=== PATIENT | female | born 1935 | race Caucasian/White ===

== ENCOUNTER 2017-01-10 19:18 | Emergency (ER) | payer MEDICARE, BC ==
[2017-01-10 19:51] VITALS: BP 176/78
--- NOTE | 2017-01-10 19:55 | EDM.PDOC ---
ED HPI GENERAL MEDICAL PROBLEM - General Chief Complaint: General Stated Complaint: MEDICAL VIA [facility] Time Seen by Provider: 01/10/17 19:20 Source of Information: Reports: EMS History Limitations: Reports: Altered Mental Status - History of Present Illness INITIAL COMMENTS - FREE TEXT/NARRATIVE: Telma is a 81 year old female with dementia who was sent via EMS from memory care unit for "combative behavior" today. Patient was reported to be throwing chairs and breaking glass which is very uncharacteristic for her. Patient has no other complaints or reported concerns. Onset: Today - Related Data Allergies Allergy/AdvReac Type Severity Reaction Status Date / Time No Known Allergies Allergy Verified 01/10/17 19:47 Home Meds: Home Meds Aspirin 81 mg PO DAILY 01/10/17 [History] Citalopram Hydrobromide [Celexa] 10 mg PO DAILY 01/10/17 [History] Memantine HCl/Donepezil HCl [Namzaric 28 mg-10 mg Capsule] 1 each PO DAILY 01/10 [History] Past Medical History - Past Health History Medical/Surgical History: Denies Medical/Surgical History Other OB/BYN History: pt. hardik sherman Psychiatric History: Reports: Alzheimers Disease, Dementia Other Hematologic History: pt. hardik sherman Other Immunologic History: pt. hardik sherman - Past Surgical History Other HEENT Surgeries/Procedures: pt. hardik sherman Other Cardiovascular Surgeries/Procedures: pt. hardik sherman Other Respiratory Surgeries/Procedures: pt. hardik sherman Other GI Surgeries/Procedures: pt. hardik sherman Other Female Surgeries/Procedures: pt. hardik sherman Other Endocrine Surgeries/Procedures: pt. hardik sherman Other Neurological Surgeries/Procedures: pt. hardik sherman Other Musculoskeletal Surgeries/Procedures:: pt. hardik sherman Other Oncologic Surgeries/Procedures: pt. hardik sherman Social & Family History - Tobacco Use Smoking Status *Q: Never Smoker - Recreational Drug Use Recreational Drug Use: No ED ROS GENERAL - Review of Systems Review Of Systems: Unable To Obtain ED EXAM, GENERAL - Physical Exam Exam: See Below Exam Limited By: Altered Mental Status General Appearance: Alert, WD/WN, No Apparent Distress Throat/Mouth: Normal Inspection, Normal Oropharynx Head: Atraumatic Neck: Normal Inspection Respiratory/Chest: No Respiratory Distress Cardiovascular: Regular Rate, Rhythm GI/Abdominal: Normal Bowel Sounds, Soft, Non-Tender Extremities: Normal Inspection Neurological: Alert, Normal Reflexes Psychiatric: Normal Affect Skin Exam: Warm, Dry, Intact Lymphatic: No Adenopathy Course - Vital Signs Last Recorded V/S: Last Vital Signs Temp 36.6 C 01/10/17 19:39 Pulse 62 01/10/17 19:39 Resp 18 01/10/17 19:39 BP 176/78 H 01/10/17 19:39 Pulse Ox 95 01/10/17 19:39 Telma is a 81-year-old female sent here from [facility] for evaluation of increased agitation today. Patient has a history of dementia, she was reportedly throwing around chairs and breaking glass today. Concerns for UTI , patient did give us a urine sample on arrival here which is negative for infection. On arrival she is mildly hypertensive, she is not febrile. Patient does have a doll which she refers to as her puppy and has been talking to her puppy here. She has not demonstrated any agitation. Blood work was obtained including a CBC and a CMP, CBC is unremarkable. CMP returns with a creatinine of 1.6 and a BUN of 19. I feel at this time, patient likely may have worsening dementia, her NIH is 0. I feel she can be discharged back to her care facility. Patient has not been violent here. She has been looking for her things, wondering where she is, sometimes slightly agitated but not violent in any capacity. [facility] facility was contacted, they are willing to take patient back but are requesting medication for patient for agitation. Patient was given 5 mg of IM Haldol here for her agitation. Will send her back with Rx for ativan, 0.5 mg tablets q8h PRN agitation, #6 tablets. to see if these are effective, [facility] facility will have to re-address patient's behavior for ongoing medication needs. - Orders/Labs/Meds Orders: Active Orders 24 hr Category Date Time Status Peripheral IV Care [RC] . DIRECTED Care 01/10/17 20:23 Active Sodium Chloride 0.9% [Normal Saline] 1,000 ml Med 01/10/17 20:30 Active IV ASDIRECTED Sodium Chloride 0.9% [Saline Flush] Med 01/10/17 20:23 Active 10 ml FLUSH ASDIRECTED PRN Peripheral IV Insertion Adult [OM.PC] Routine Oth 01/10/17 20:23 Ordered Medication Orders Sodium Chloride (Normal Saline) 1,000 mls @ 999 mls/hr IV ASDIRECTED STEPHEN Sodium Chloride (Saline Flush) 10 ml FLUSH ASDIRECTED PRN PRN Reason: Keep Vein Open Labs: Laboratory Tests 01/10/17 01/10/17 01/10/17 Range/Units 19:33 19:40 19:40 WBC 6.5 (4.5-11.0) K/uL RBC 4.66 (3.30-5.50) M/uL Hgb 13.6 (12.0-15.0) g/dL Hct 40.2 (36.0-48.0) % MCV 86 (80-98) fL MCH 29 (27-31) pg MCHC 34 (32-36) % Plt Count 181 (150-400) K/uL Neut % (Auto) 54 (36-66) % Lymph % (Auto) 32 (24-44) % [place] % (Auto) 10 H (2-6) % Eos % (Auto) 3 (2-4) % Baso % (Auto) 1 (0-1) % Sodium 140 (140-148) mmol/L Potassium 4.1 (3.6-5.2) mmol/L Chloride 105 (100-108) mmol/L Carbon Dioxide 30 (21-32) mmol/L Anion Gap 4.8 L (5.0-14.0) mmol/L BUN 19 H (7-18) mg/dL Creatinine 1.6 H (0.6-1.0) mg/dL Est Cr Clr Drug Dosing 23.58 mL/min Estimated GFR (MDRD) 31 L (>60) Glucose 99 (74-106) mg/dL Calcium 8.3 L (8.5-10.1) mg/dL Total Bilirubin 0.4 (0.2-1.0) mg/dL AST 18 (15-37) U/L ALT 14 (12-78) U/L Alkaline Phosphatase 74 (46-116) U/L Total Protein 6.9 (6.4-8.2) g/dL Albumin 3.7 (3.4-5.0) g/dL Globulin 3.2 (2.3-3.5) g/dL Albumin/Globulin Ratio 1.2 (1.2-2.2) Urine Color Yellow Urine Appearance Cloudy Urine pH 5.0 (4.5-8.0) Ur Specific [place] 1.030 (1.008-1.030) Urine Protein Negative (NEGATIVE) mg/dL Urine Glucose (UA) Normal (NEGATIVE) mg/dL Urine Ketones Negative (NEGATIVE) mg/dL Urine Occult Blood Negative (NEGATIVE) Urine Nitrite Negative (NEGATIVE) Urine Bilirubin Negative (NEGATIVE) Urine Urobilinogen 4 (NORMAL) mg/dL Ur Leukocyte Esterase Negative (NEGATIVE) Urine RBC 0-5 (0-5) Urine WBC 0-5 (0-5) Ur Epithelial Cells Few Amorphous Sediment Few Urine Bacteria Few Urine Mucus Numerous Meds: Medications Generic Name Dose Route Start Last Admin Trade Name Freq PRN Reason Stop Dose Admin Sodium Chloride 1,000 mls @ 999 mls/hr 01/10/17 20:30 Normal Saline IV ASDIRECTED STEPHEN Sodium Chloride 10 ml 01/10/17 20:23 Saline Flush FLUSH ASDIRECTED PRN Keep Vein Open Discontinued Medications Generic Name Dose Route Start Last Admin Trade Name Freq PRN Reason Stop Dose Admin Haloperidol Lactate 5 mg 01/10/17 20:40 Haldol IM 01/10/17 20:41 ONETIME ONE Lorazepam 0.5 mg 01/10/17 21:18 Ativan PO 01/10/17 21:19 ONETIME ONE Departure - Departure Time of Disposition: 22:00 Disposition: DC/Tfer to SNF 03 Condition: Good Clinical Impression: Dementia Qualifiers: Dementia type: unspecified type Dementia behavioral disturbance: with behavioral disturbance Qualified Code(s): F03.91 - Unspecified dementia with behavioral disturbance - Discharge Information Referrals: PCP,None [Primary Care Provider] - Forms: ED Department Discharge Additional Instructions: Follow up with her primary care provider to address increasing agitation and medication needs. Please encourage fluids and have her creatinine rechecked this week as her creatinine was mildly elevated at 1.6 today. - My Orders Last 24 Hours: My Active Orders 01/10/17 20:23 Peripheral IV Care [RC] . DIRECTED Sodium Chloride 0.9% [Saline Flush] 10 ml FLUSH ASDIRECTED PRN Peripheral IV Insertion Adult [OM.PC] Routine 01/10/17 20:30 Sodium Chloride 0.9% [Normal Saline] 1,000 ml IV ASDIRECTED - Assessment/Plan Last 24 Hours: My Active Orders 01/10/17 20:23 Peripheral IV Care [RC] . DIRECTED Sodium Chloride 0.9% [Saline Flush] 10 ml FLUSH ASDIRECTED PRN Peripheral IV Insertion Adult [OM.PC] Routine 01/10/17 20:30 Sodium Chloride 0.9% [Normal Saline] 1,000 ml IV ASDIRECTED
[2017-01-10] MEDS ORDERED: Sodium Chloride 0.9% 10 ML Syringe FLUSH PRN (20:23)
[2017-01-10] MEDS ORDERED: Sodium Chloride 0.9% 1,000 ML IV SCH (20:30)
[2017-01-10] MEDS ORDERED: Haloperidol Lactate 5 MG/ML SDV IM ONE (20:40)
[2017-01-10] MEDS ORDERED: LORazepam 0.5 MG Tab PO ONE (21:18)
[2017-01-10] MEDS ORDERED: LORazepam 0.5 MG Tab PO PRN (22:56)
[2017-01-10] MEDS ORDERED: LORazepam 0.5 MG Tab ONE (23:00)
== END 2017-01-10 23:15 ==
LOC: JP.ED 19:18
DX: F03.91 Unspecified dementia, unspecified severity, with behavioral disturbance (principal); Z79.82 Long term (current) use of aspirin; Z79.899 Other long term (current) drug therapy
CPT/HCPCS: 36415; 80053; 81001; 85025; 96372; 99285; J1630